=== PATIENT | female | born 1980 ===

== ENCOUNTER 2022-12-23 06:40 | Day surgery (SDC) | payer OTHER ==
[~2022-12-23] VITALS: Ht 165.1 cm; Wt 56.7 kg
== END 2022-12-23 20:30 | disposition home or self-care (01) ==
LOC: CIR.AMB 06:40
PROVIDERS: ATTEND Surgery
DX: D05.11 Intraductal carcinoma in situ of right breast (principal); Z80.3 Family history of malignant neoplasm of breast; Z90.13 Acquired absence of bilateral breasts and nipples; R59.0 Localized enlarged lymph nodes; Z88.6 Allergy status to analgesic agent; Z20.822 Contact with and (suspected) exposure to COVID-19; Z15.01 Genetic susceptibility to malignant neoplasm of breast; I10 Essential (primary) hypertension
CPT/HCPCS: 19303; 38525; 38792; 19328; 19340; A9541